=== PATIENT | female | born 1955 | race Caucasian/White ===

== ENCOUNTER 2018-01-09 08:59 | Emergency (ER) | payer BC, SELFPAY ==
[2018-01-09 09:31] LABS: #Basophils 0.1 thou/uL (0.0-0.2); #Lymphocytes 1.6 thou/uL (1.20-3.40); #Monocytes 0.3 thou/uL (0.11-0.59); #Neutrophils 1.2 thou/uL (1.40-6.50); %Basophils 2.3 % (0.0-1.0); %Eosinophils 1.3 % (0.0-10.0); %Lymphocytes 49.3 % (21.0-51.0); %Monocytes 10.5 % (0.0-10.0); %Neutrophils 36.7 % (42.0-75.0); Hemoglobin 14.3 g/dL (12.0-16.0); Mean Corpuscular HGB CONC 33.1 g/dL (32.0-36.0); Mean Corpuscular Hemoglobin 30.7 pg (27.0-31.0); Mean Corpuscular Volume 92.9 fl (81.0-99.0); Mean Platelet Volume 11.3 fL (7.4-10.4); Platelet Count 220 thou/uL (130-400); RBC Distribution Width 12.5 % (11.5-14.5); Red Blood Cell (RBC) Count 4.66 mill/uL (4.20-5.40); White Blood Cell (WBC) Count 3.2 thou/uL (4.8-10.8)
[2018-01-09 09:44] LABS: ALT (SGPT) 13 U/L (8-55); AST (SGOT) 14 U/L (5-34); Albumin 3.9 g/dL (3.4-4.8); Alkaline Phosphatase 61 U/L (40-150); Anion Gap 13 mmol/L (10-20); BUN (Urea Nitrogen) 14 mg/dL (9.8-20.1); Bilirubin, Total 0.6 mg/dL (0.2-1.2); CK (CPK) 39 U/L (29-168); CKMB 0.8 ng/mL (0-6.6); Calc. Creatinine Clearance 0 mL/min (70-130); Calcium 9.4 mg/dL (7.8-10.44); Carbon Dioxide 21 mmol/L (23-31); Chloride 108 mmol/L (98-107); Estimated GFR-MDRD 72; Globulin 3.3 g/dL (2.4-3.5); Glucose 71 mg/dL (80-115); Protein, Total 7.2 g/dL (6.0-8.3); Sodium 138 mmol/L (136-145); Troponin I Less than 0.010 ng/mL (< 0.028)
[2018-01-09] MEDS ORDERED: Nitroglycerin 2% Ointment 1 INCH/1 GM Packet ONE (09:44)
--- NOTE | 2018-01-09 09:57 | RAD ---
PA AND LATERAL VIEWS OF CHEST: Date: 01/09/18 HISTORY: Chest pain radiating to the back. FINDINGS: The heart size is normal. The aorta is tortuous. The lungs are expanded without focal areas of consol idation, pneumothoraces, blanquita pulmonary edema, or pleural effusions. IMPRESSION: No radiographic evidence of acute cardiopulmonary process. POS: [facility]
[2018-01-09 12:37] LABS: Troponin I Less than 0.010 ng/mL (< 0.028)
== END 2018-01-09 12:47 | disposition home or self-care (01) ==
LOC: SCSER 08:59
DX: R07.89 Other chest pain (principal); R42 Dizziness and giddiness; K21.9 Gastro-esophageal reflux disease without esophagitis; I10 Essential (primary) hypertension; Z79.899 Other long term (current) drug therapy
CPT/HCPCS: 36415; 71046; 80053; 82550; 82553; 84484; 85025; 85379; 93005

== ENCOUNTER 2022-11-04 12:48 | Outpatient (CLI) | payer MEDICARE | END 2022-11-04 12:49 | disposition home or self-care (01) | LOC: SCSRAD 12:48 | PROVIDERS: ATTEND Family Medicine | DX: M89.8X1 Other specified disorders of bone, shoulder (principal) ==